=== PATIENT | male | born 1995 | race Caucasian/White ===

== ENCOUNTER 2018-05-18 11:06 | Outpatient (CLI) | payer OTHER | END 2018-05-18 14:32 | disposition home or self-care (01) | LOC: LAB 11:06 | DX: J03.80 Acute tonsillitis due to other specified organisms (principal); R07.0 Pain in throat; Z13.89 Encounter for screening for other disorder; Z13.220 Encounter for screening for lipoid disorders; Z11.3 Encounter for screening for infections with a predominantly sexual mode of transmission; M54.5 Low back pain; E66.8 Other obesity; H66.93 Otitis media, unspecified, bilateral ==

== ENCOUNTER 2021-11-25 10:05 | Outpatient (CLI) | payer OTHER | END 2021-11-25 10:15 | disposition home or self-care (01) | LOC: PPH VACUNA 10:05 | PROVIDERS: ATTEND Emergency Medicine Pediatric Emergency Medicine | DX: Z23 Encounter for immunization (principal) ==

== ENCOUNTER → 2022-02-22 10:13 | Outpatient (CLI) | payer OTHER | END | disposition home or self-care (01) | LOC: LAB 10:13 | PROVIDERS: ATTEND Obstetrics & Gynecology | DX: Z20.818 Contact with and (suspected) exposure to other bacterial communicable diseases (principal); Z20.828 Contact with and (suspected) exposure to other viral communicable diseases ==

== ENCOUNTER 2024-04-27 11:09 | Outpatient (CLI) | payer OTHER ==
[2024-04-27 12:42] LABS: URINE APPEARANCE Clear; URINE BILIRRUBIN Negative (NEGATIVE); URINE COLOR Yellow; URINE GLUCOSE Negative (NEGATIVE); URINE KETONE Negative (NEGATIVE); URINE LEUKOCYTE Small; URINE NITRATE Negative; URINE PROTEIN Negative (NEGATIVE)
[2024-04-27 12:48] LABS: URINE BACTERIA 225.1 uL (0.0-1933); URINE EPITHELIAL CELLS 26.9 uL (0.0-38.8); URINE RBC 30.9 uL (0.0-20.8); URINE WBC 53.9 uL (0.0-23.2)
[2024-04-27 12:49] LABS: HEMOGLOBIN 15.6 g/dL (13-16.00); MEAN CELL VOLUME 91.7 fL (80.0-100.00); MEAN CORPUSCULAR HEMOGLOBIN 31.1 pg (27.00-32.0); MEAN CORPUSCULAR HGB CONC 33.9 g/dl (32.0-36.0); PLATELET COUNT 221 K/uL (150-450); RED BLOOD COUNT 5.01 M/uL (4.00-6.00); RED CELL DISTRIBUTION WIDTH 12.8 % (11.5-14.5)
[2024-04-27 12:58] LABS: URINE BLOOD TRACES
[2024-04-27 13:26] LABS: ERYTHROCYTE SEDIMENTATION RATE 26 mm/hr
[2024-04-27 13:43] LABS: ALBUMIN 4.3 gm/dL (3.4-5.0); BILIRUBIN TOTAL 0.51 mg/dL (0.3-1.2); CALCIUM 9.4 mg/dL (8.5-10.1); CHOL HDL RATIO 4.2 (0-5.0); CREATININE SERUM 0.7 mg/dL (0.70-1.30); GFR 134.28; GLOBULINA 3.8 G/DL (2.4-3.5); POTASSIUM 3.97 mEq/L (3.5-5.1); PROSTATIC SPECIFIC ANTIGEN 0.665 NG/ML (0.010-4.00); TOTAL PROTEIN 8.1 gm/dL (6.4-8.2); TSH 0.945 uIU/mL (0.358-3.74)
[2024-04-29 08:04] LABS: hav igm Negative (Negative); hcv Non Reactive (Non Reactive); hep b c Negative (Negative); hep b s ag Negative (Negative)
== END 2024-04-27 12:19 | disposition home or self-care (01) ==
LOC: LAB 11:09
DX: Z11.3 Encounter for screening for infections with a predominantly sexual mode of transmission (principal); Z13.21 Encounter for screening for nutritional disorder; Z13.0 Encounter for screening for diseases of the blood and blood-forming organs and certain disorders involving the immune mechanism; Z13.1 Encounter for screening for diabetes mellitus; Z13.220 Encounter for screening for lipoid disorders; Z13.29 Encounter for screening for other suspected endocrine disorder; Z12.5 Encounter for screening for malignant neoplasm of prostate; N39.0 Urinary tract infection, site not specified

== ENCOUNTER 2024-04-27 12:03 | Outpatient (CLI) | payer OTHER | END 2024-04-27 12:18 | disposition home or self-care (01) | LOC: RAD 12:03 | PROVIDERS: ATTEND General Practice | DX: Z11.3 Encounter for screening for infections with a predominantly sexual mode of transmission (principal); Z13.21 Encounter for screening for nutritional disorder; Z13.0 Encounter for screening for diseases of the blood and blood-forming organs and certain disorders involving the immune mechanism; Z13.1 Encounter for screening for diabetes mellitus; Z13.220 Encounter for screening for lipoid disorders; Z13.29 Encounter for screening for other suspected endocrine disorder; Z12.5 Encounter for screening for malignant neoplasm of prostate; N39.0 Urinary tract infection, site not specified ==

== ENCOUNTER 2024-05-09 03:46 | Emergency (ER) | payer OTHER ==
[~2024-05-09] VITALS: Ht 180.3 cm; Wt 99.8 kg
[2024-05-09] MEDS ORDERED: CEFTRIAXONE SODIUM 1,000 MG VIAL IM STA (06:05)
[2024-05-09] MEDS ORDERED: KETOROLAC TROMETHAMINE 10 MG TABLET PO STA (06:06)
[2024-05-09] MEDS ORDERED: KETOROLAC TROMETHAMINE 10 MG TABLET PO ONE (06:12)
[2024-05-09] MEDS ORDERED: CEFTRIAXONE SODIUM 1,000 MG VIAL ONE (06:13)
[2024-05-09] MEDS ORDERED: LIDOCAINE HCL 1% 10ML VIAL ONE (06:13)
[2024-05-09] MEDS ORDERED: ZITHROMAX500 MG PO (06:19)
[2024-05-09] MEDS ORDERED: KETO10TA2 PO (06:19)
== END 2024-05-09 06:20 ==
LOC: ER 03:49
DX: J03.80 Acute tonsillitis due to other specified organisms (principal); B96.89 Other specified bacterial agents as the cause of diseases classified elsewhere; J00 Acute nasopharyngitis [common cold]

== ENCOUNTER 2024-05-28 23:39 | Emergency (ER) | payer OTHER ==
[~2024-05-28] VITALS: Ht 180.3 cm; Wt 99.8 kg
[~2024-05-28 23:39] MED LIST: KETO10TA2 PO; ZITHROMAX500 MG PO
[2024-05-29] MEDS ORDERED: KETOROLAC TROMETHAMINE 30 MG VIAL IV ONE (00:30)
[2024-05-29] MEDS ORDERED: CEFTRIAXONE SODIUM 2,000 MG VIAL IV ONE (00:30)
[2024-05-29 01:28] LABS: HEMATOCRIT 41.4 % (39.0-48.0); HEMOGLOBIN 14.2 g/dL (13-16.00); MEAN CORPUSCULAR HEMOGLOBIN 31.3 pg (27.00-32.0); MEAN CORPUSCULAR HGB CONC 34.4 g/dl (32.0-36.0); PLATELET COUNT 264 K/uL (150-450); RED BLOOD COUNT 4.54 M/uL (4.00-6.00); RED CELL DISTRIBUTION WIDTH 12.7 % (11.5-14.5)
[2024-05-29] MEDS ORDERED: AMOX-CLAV 875-1 EACH PO (01:44)
[2024-05-29] MEDS ORDERED: DICLOFENAC SODI75 MG PO (01:45)
[2024-05-29 01:51] LABS: ALBUMIN 3.8 gm/dL (3.4-5.0); BILIRUBIN TOTAL 0.53 mg/dL (0.3-1.2); CALCIUM 9.2 mg/dL (8.5-10.1); CREATININE SERUM 0.78 mg/dL (0.70-1.30); GFR 117.68; GLOBULINA 4.8 G/DL (2.4-3.5); POTASSIUM 3.69 mEq/L (3.5-5.1); TOTAL PROTEIN 8.6 gm/dL (6.4-8.2)
[2024-05-29] MEDS ORDERED: CETIRIZINE HCL 5 MG/5 ML ML PO ONE (02:15)
== END 2024-05-29 02:01 | disposition home or self-care (01) ==
LOC: ER 23:41
PROVIDERS: General Practice
DX: J03.80 Acute tonsillitis due to other specified organisms (principal)
CPT/HCPCS: 36415; 96365; 99282; J0696; J1885

== ENCOUNTER 2024-06-01 08:31 | Outpatient (CLI) | payer OTHER ==
[~2024-06-01 08:31] MED LIST changes: +AMOX-CLAV 875-1 EACH PO; +DICLOFENAC SODI75 MG PO
[2024-06-02] MEDS ORDERED: LEVSIN/SL0.125 MG SL (03:30)
[2024-06-02] MEDS ORDERED: ORASEP SPRAY30 ML MM (03:43)
== END 2024-06-01 08:42 | disposition home or self-care (01) ==
LOC: SONOGRAMA 08:31
PROVIDERS: ATTEND General Practice
DX: R10.9 Unspecified abdominal pain (principal); B27.90 Infectious mononucleosis, unspecified without complication; J03.90 Acute tonsillitis, unspecified; N39.0 Urinary tract infection, site not specified

== ENCOUNTER 2024-06-01 09:17 | Outpatient (CLI) | payer OTHER ==
[2024-06-01 10:06] LABS: HEMATOCRIT 43.2 % (39.0-48.0); HEMOGLOBIN 15.1 g/dL (13-16.00); MEAN CELL VOLUME 90.5 fL (80.0-100.00); MEAN CORPUSCULAR HEMOGLOBIN 31.5 pg (27.00-32.0); MEAN CORPUSCULAR HGB CONC 34.8 g/dl (32.0-36.0); PLATELET COUNT 363 K/uL (150-450); RED BLOOD COUNT 4.78 M/uL (4.00-6.00); RED CELL DISTRIBUTION WIDTH 12.7 % (11.5-14.5)
[2024-06-01 10:14] LABS: URINE EPITHELIAL CELLS 27.3 uL (0.0-38.8); URINE RBC 52.5 uL (0.0-20.8); URINE WBC 14.4 uL (0.0-23.2)
[2024-06-01 10:17] LABS: PH,URINE 6.5 (5.0-8.0); URINE APPEARANCE Cloudy; URINE BILIRRUBIN Negative (NEGATIVE); URINE BLOOD Small; URINE COLOR Yellow; URINE GLUCOSE Negative (NEGATIVE); URINE KETONE Negative (NEGATIVE); URINE LEUKOCYTE Negative; URINE NITRATE Negative; URINE PROTEIN Negative (NEGATIVE); URINE UROBILINOGEN 0.2 E.U./dl
[2024-06-01 10:21] LABS: URINE BACTERIA 2.4 uL (0.0-1933); URINE CAST 0.73 uL (0.0-1.40)
[2024-06-01 10:52] LABS: CALCIUM 10.4 mg/dL (8.5-10.1); CREATININE SERUM 0.65 mg/dL (0.70-1.30); GFR 145.23; POTASSIUM 4.37 mEq/L (3.5-5.1)
[2024-06-01 11:47] LABS: ALKALINE PHOSPHATASE 75 U/L (50-136); ALT/SGPT 23 U/L (12-78); AST/SGOT 11 U/L (15-37); BILIRUBIN TOTAL 0.27 mg/dL (0.3-1.2); BILIRUBIN,CONJUGATED < 0.10 mg/dL (0.0-0.2); BILIRUBIN,UNCONJUGATED 0.17 mg/dL (0.0-0.6); TOTAL PROTEIN 8.5 gm/dL (6.4-8.2)
[2024-06-02] MEDS ORDERED: LEVSIN/SL0.125 MG SL (03:30)
[2024-06-02] MEDS ORDERED: ORASEP SPRAY30 ML MM (03:43)
== END 2024-06-01 09:25 | disposition home or self-care (01) ==
LOC: LAB 09:17
PROVIDERS: ATTEND General Practice
DX: J06.9 Acute upper respiratory infection, unspecified (principal); B27.90 Infectious mononucleosis, unspecified without complication; I10 Essential (primary) hypertension; J11.1 Influenza due to unidentified influenza virus with other respiratory manifestations; A49.3 Mycoplasma infection, unspecified site; J03.90 Acute tonsillitis, unspecified; N39.0 Urinary tract infection, site not specified

== ENCOUNTER 2024-06-01 16:59 | Emergency (ER) | payer OTHER ==
[~2024-06-01] VITALS: Ht 170.2 cm; Wt 99.3 kg
[2024-06-01 17:39] VITALS: BP 137/78; O2SAT 99
[2024-06-01] MEDS ORDERED: 0.9 % SODIUM CHLORIDE 1,000 ML IV STA (21:44)
[2024-06-02 00:16] LABS: HEMATOCRIT 43.1 % (39.0-48.0); HEMOGLOBIN 14.9 g/dL (13-16.00); MEAN CELL VOLUME 91.5 fL (80.0-100.00); MEAN CORPUSCULAR HEMOGLOBIN 31.6 pg (27.00-32.0); MEAN CORPUSCULAR HGB CONC 34.5 g/dl (32.0-36.0); PLATELET COUNT 317 K/uL (150-450); RED BLOOD COUNT 4.71 M/uL (4.00-6.00); RED CELL DISTRIBUTION WIDTH 13.2 % (11.5-14.5)
[2024-06-02 00:33] LABS: URINE APPEARANCE Cloudy; URINE BILIRRUBIN Negative (NEGATIVE); URINE BLOOD Negative; URINE COLOR Yellow; URINE GLUCOSE Negative (NEGATIVE); URINE KETONE Trace (NEGATIVE); URINE LEUKOCYTE Small; URINE NITRATE Negative; URINE PROTEIN Negative (NEGATIVE); URINE UROBILINOGEN 0.2 E.U./dl
[2024-06-02 00:36] LABS: URINE BACTERIA 37.9 uL (0.0-1933); URINE EPITHELIAL CELLS 66.3 uL (0.0-38.8); URINE RBC 14.8 uL (0.0-20.8); URINE WBC 123.8 uL (0.0-23.2)
[2024-06-02 00:42] LABS: INR 1.04; PARTIAL THROMBOPLASTIN TIME 28.9 SECONDS (22.0-34.0); PROTHROMBIN TIME 11.3 SECONDS (9.0-11.5)
[2024-06-02 00:47] LABS: ALBUMIN 3.8 gm/dL (3.4-5.0); ALKALINE PHOSPHATASE 81 U/L (50-136); ALT/SGPT 24 U/L (12-78); AMYLASE 85 U/L (25-115); ANION GAP 9 (10.0-20.0); AST/SGOT 20 U/L (15-37); BILIRUBIN TOTAL 0.25 mg/dL (0.3-1.2); BLOOD UREA NITROGEN 16 mg/dL (7-18); BUN CREA RATIO 22 (7.0-25.0); CALCIUM 9.4 mg/dL (8.5-10.1); CARBON DIOXIDE 32 mEq/L (21-32); CHLORIDE 105 mmol/L (98-107); CREATININE SERUM 0.74 mg/dL (0.70-1.30); GFR 125.05; GLOBULINA 4.3 G/DL (2.4-3.5); GLUCOSE FASTING 109 mg/dL (65-100); LIPASE 50 U/L (13-75); OSMOLALITY SERUM 283 MOSM/KG (275-295); POTASSIUM 4.63 mEq/L (3.5-5.1); SODIUM 141 mmol/L (136-145); TOTAL PROTEIN 8.1 gm/dL (6.4-8.2)
[2024-06-02 01:10] LABS: BILIRUBIN,CONJUGATED < 0.10 mg/dL (0.0-0.2); BILIRUBIN,UNCONJUGATED 0.15 mg/dL (0.0-0.6)
[2024-06-02 01:37] LABS: URINE CAST 0.73 uL (0.0-1.40)
[2024-06-02] MEDS ORDERED: LEVSIN/SL0.125 MG SL (03:30)
[2024-06-02] MEDS ORDERED: ORASEP SPRAY30 ML MM (03:43)
== END 2024-06-02 04:02 ==
LOC: ER 17:02
DX: B27.90 Infectious mononucleosis, unspecified without complication (principal); R10.9 Unspecified abdominal pain

== ENCOUNTER 2024-06-27 07:43 | Outpatient (CLI) | payer OTHER ==
[~2024-06-27 07:43] MED LIST changes: +LEVSIN/SL0.125 MG SL; +ORASEP SPRAY30 ML MM
== END 2024-06-27 07:50 | disposition home or self-care (01) ==
LOC: SONOGRAMA 07:43
PROVIDERS: ATTEND General Practice
DX: R16.0 Hepatomegaly, not elsewhere classified (principal); R16.1 Splenomegaly, not elsewhere classified

== ENCOUNTER → 2024-06-27 08:18 | Outpatient (CLI) | payer OTHER ==
[2024-06-27 09:24] LABS: HEMATOCRIT 43.8 % (39.0-48.0); HEMOGLOBIN 14.8 g/dL (13-16.00); MEAN CELL VOLUME 91.2 fL (80.0-100.00); MEAN CORPUSCULAR HEMOGLOBIN 30.9 pg (27.00-32.0); MEAN CORPUSCULAR HGB CONC 33.8 g/dl (32.0-36.0); PLATELET COUNT 243 K/uL (150-450); RED CELL DISTRIBUTION WIDTH 13.1 % (11.5-14.5)
[2024-06-27 10:12] LABS: BILIRUBIN TOTAL 0.39 mg/dL (0.3-1.2); CALCIUM 9.7 mg/dL (8.5-10.1); CREATININE SERUM 0.71 mg/dL (0.70-1.30); GFR 131.16; GLOBULINA 3.7 G/DL (2.4-3.5); POTASSIUM 4.78 mEq/L (3.5-5.1); TOTAL PROTEIN 7.7 gm/dL (6.4-8.2)
[2024-06-29 11:10] LABS: vca igm ab < 36.0 U/mL (0.0-35.9)
== END | disposition home or self-care (01) ==
LOC: LAB 08:18
PROVIDERS: ATTEND General Practice
DX: B27.90 Infectious mononucleosis, unspecified without complication (principal); E66.9 Obesity, unspecified; H66.93 Otitis media, unspecified, bilateral; J01.90 Acute sinusitis, unspecified; J03.90 Acute tonsillitis, unspecified; J30.9 Allergic rhinitis, unspecified; J35.01 Chronic tonsillitis; M54.50 Low back pain, unspecified; R05.9 Cough, unspecified; R07.0 Pain in throat; R09.81 Nasal congestion; R53.81 Other malaise; Z00.00 Encounter for general adult medical examination without abnormal findings; Z11.3 Encounter for screening for infections with a predominantly sexual mode of transmission; Z13.220 Encounter for screening for lipoid disorders; Z13.89 Encounter for screening for other disorder; M54.2 Cervicalgia; M25.542 Pain in joints of left hand; Z13.228 Encounter for screening for other metabolic disorders; M25.541 Pain in joints of right hand; G89.29 Other chronic pain; H57.9 Unspecified disorder of eye and adnexa; R21 Rash and other nonspecific skin eruption; L01.00 Impetigo, unspecified; N39.0 Urinary tract infection, site not specified; Z13.29 Encounter for screening for other suspected endocrine disorder; Z12.5 Encounter for screening for malignant neoplasm of prostate; Z13.21 Encounter for screening for nutritional disorder; Z13.0 Encounter for screening for diseases of the blood and blood-forming organs and certain disorders involving the immune mechanism; R16.1 Splenomegaly, not elsewhere classified; R16.0 Hepatomegaly, not elsewhere classified; R10.9 Unspecified abdominal pain

== ENCOUNTER 2024-08-29 12:56 | Emergency (ER) | payer OTHER ==
[~2024-08-29] VITALS: Ht 180.3 cm; Wt 87.5 kg
[2024-08-29] MEDS ORDERED: 0.9 % SODIUM CHLORIDE 1,000 ML IV STA (14:13)
[2024-08-29] MEDS ORDERED: KETOROLAC TROMETHAMINE 60 MG VIAL IM ONE ×2 (14:15→14:24)
[2024-08-29 15:09] LABS: BASO % 0.3 % (0.1-1.2); EOS # 0.01 (0.04-0.54); EOS % 0.1 % (0.7-7.0); HEMATOCRIT 46.8 % (40.1-51.0); HEMOGLOBIN 16.9 g/dL (13.7-17.5); LYMPH # 1.21 (1.18-3.74); LYMPH % 17.2 % (19.3-53.1); MEAN CORPUSCULAR HEMOGLOBIN 30.6 pg (25.6-32.2); MONO # 0.87 (0.24-0.82); NEUT # 4.93 (1.56-6.13); PLATELET COUNT 225 K/uL (163-369); RED BLOOD COUNT 5.52 M/uL (4.63-6.08); RED CELL DISTRIBUTION WIDTH 12.2 % (11.6-14.4)
[2024-08-29 15:16] LABS: CALCIUM 9.5 mg/dL (8.5-10.1); CREATININE SERUM 0.75 mg/dL (0.70-1.30); GFR 123.12; POTASSIUM 3.64 mEq/L (3.5-5.1)
[2024-08-29 15:19] LABS: MONO % 12.3 % (4.7-12.5)
[2024-08-29 15:35] LABS: URINE APPEARANCE Cloudy; URINE BILIRRUBIN Negative (NEGATIVE); URINE BLOOD Moderate; URINE COLOR Dark Yellow; URINE GLUCOSE Negative (NEGATIVE); URINE LEUKOCYTE Trace; URINE NITRATE Negative; URINE PROTEIN Trace (NEGATIVE)
[2024-08-29 15:38] LABS: URINE BACTERIA 6.1 uL (0.0-1933); URINE EPITHELIAL CELLS 16.7 uL (0.0-38.8); URINE RBC 78.8 uL (0.0-20.8)
[2024-08-29 16:05] LABS: URINE CAST 0.58 uL (0.0-1.40); URINE KETONE 40 (NEGATIVE)
[2024-08-29] MEDS ORDERED: ONDANSETRON HCL 2 MG/ML VIAL IV ONE (18:15)
[2024-08-29] MEDS ORDERED: TAMSULOSIN HCL 0.4 MG CAP PO ONE ×2 (18:15→18:34)
[2024-08-29] MEDS ORDERED: CEFTRIAXONE SODIUM 1,000 MG VIAL IV ONE (18:15)
[2024-08-29] MEDS ORDERED: KETOROLAC TROMETHAMINE 30 MG VIAL IV ONE (18:15)
[2024-08-29] MEDS ORDERED: KETOROLAC TROMETHAMINE 30 MG VIAL ONE (18:34)
[2024-08-29] MEDS ORDERED: ONDANSETRON HCL 2 MG/ML VIAL ONE (18:35)
[2024-08-29] MEDS ORDERED: PEPCID AC20 MG PO (23:29)
[2024-08-29] MEDS ORDERED: NORFLEX100MG PO (23:29)
[2024-08-29] MEDS ORDERED: BACTRIM DS TAB1 EACH PO (23:29)
== END 2024-08-30 00:04 | disposition home or self-care (01) ==
LOC: ER 12:56
PROVIDERS: Emergency Medicine
DX: N39.0 Urinary tract infection, site not specified (principal); R10.9 Unspecified abdominal pain
CPT/HCPCS: 36415; 74177; Q9965

== ENCOUNTER 2024-08-30 15:05 | Emergency (ER) | payer OTHER ==
[~2024-08-30] VITALS: Ht 180.3 cm; Wt 88.0 kg
[~2024-08-30 15:05] MED LIST changes: +BACTRIM DS TAB1 EACH PO; +NORFLEX100MG PO; +PEPCID AC20 MG PO
[2024-08-30 16:04] VITALS: BP 134/83; O2SAT 96
[2024-08-30] MEDS ORDERED: FAMOTIDINE/PF 20 MG/2 ML VIAL ONE (16:52)
[2024-08-30] MEDS ORDERED: FAMOtidine 10 MG/ML (4ML VIAL) IV PUSH STA (16:52)
[2024-08-30 17:14] LABS: BASO % 0.3 % (0.1-1.2); EOS # 0.03 (0.04-0.54); EOS % 0.5 % (0.7-7.0); HEMATOCRIT 43.5 % (40.1-51.0); HEMOGLOBIN 15.6 g/dL (13.7-17.5); LYMPH # 1.43 (1.18-3.74); LYMPH % 24.2 % (19.3-53.1); MEAN CORPUSCULAR HEMOGLOBIN 30.5 pg (25.6-32.2); MONO # 0.84 (0.24-0.82); NEUT # 3.57 (1.56-6.13); NEUT % 60.6 % (34.0-71.1); PLATELET COUNT 201 K/uL (163-369); RED BLOOD COUNT 5.11 M/uL (4.63-6.08); RED CELL DISTRIBUTION WIDTH 12.4 % (11.6-14.4)
[2024-08-30 17:16] LABS: MONO % 14.2 % (4.7-12.5)
[2024-08-30 18:04] LABS: URINE APPEARANCE Clear; URINE BILIRRUBIN Negative (NEGATIVE); URINE BLOOD Small; URINE COLOR Yellow; URINE GLUCOSE Negative (NEGATIVE); URINE LEUKOCYTE Negative; URINE NITRATE Negative; URINE PROTEIN Negative (NEGATIVE); URINE UROBILINOGEN 0.2 E.U./dl
[2024-08-30 18:08] LABS: URINE RBC 22.5 uL (0.0-20.8); URINE WBC 6.9 uL (0.0-23.2)
[2024-08-30 18:14] LABS: URINE KETONE 40 (NEGATIVE)
[2024-08-30 18:15] LABS: URINE BACTERIA 2.4 uL (0.0-1933)
== END 2024-08-30 20:10 | disposition home or self-care (01) ==
LOC: ER 15:05
DX: K29.70 Gastritis, unspecified, without bleeding (principal); R19.7 Diarrhea, unspecified; R30.0 Dysuria